=== PATIENT | female | born 1955 | race Hispanic/Latino ===

== ENCOUNTER 2019-10-06 11:31 | Emergency (ER) | payer OTHER, SELFPAY ==
[2019-10-06 11:33] VITALS: BP 149/78; PULSE 89; RESP 18; TEMP 36.6; O2SAT 96; BMI 39.9
--- NOTE | 2019-10-06 11:50 | ED.DCSUM_ITS ---
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 causing the blade to move she has fine lacerations to the tip of the right index finger she is left-hand dominant she has no other complaints no loss of function she indicates is very minimal pain Past Medical History - Allergies and Home Meds Allergies/Adverse Reactions: Allergies meperidine [From Demerol] Allergy (Verified 10/06/19 11:37) Other morphine Allergy (Verified 10/06/19 11:37) Vomiting Primary Care Physician: [facility]GROUP OF PHYSICIANS] - [facility] Doctor,Out of [NON-STAFF] - Past Medical History: - - Declined Review of Systems General: Denies: Chills, Fever, Sweats Eyes: Denies: Visual changes - bilaterally, Diplopia ENT: Denies: Rhinorrhea, Sore throat Cardiovascular: Denies: Chest pain, Palpitations Respiratory: Denies: Dyspnea, Cough, Dyspnea on exertion Gastrointestinal: Denies: Abdominal pain, Nausea, Vomiting, Diarrhea, Melena, Hematochezia Genitourinary: Denies: Dysuria, Hematuria, Frequency Musculoskeletal: Reports: - - Right index fingertip only. Denies: Back pain, Extremity Pain Skin: Denies: Rash, Wounds Neurological: Denies: Headache, Weakness, Numbness Physical Exam Vital Signs/Narrative: Vital Signs Temp Pulse Resp BP Pulse Ox 10/06/19 11:33 98 F 89 18 149/78 H 96 General: Well nourished, Well developed, No Acute Distress Head: Normocephalic, Atraumatic Eyes: Perrl, EOMI ENT: Moist mucous membranes, No rhinorrhea Neck: Supple, Nontender Cardiovascular: Regular rate, Regular rhythm, No murmurs Respiratory: No distress, CTA bilaterally, Chest nontender Abdomen: Soft, Nontender, Nondistended, Normal bowel sounds Back: Nontender, Normal Inspection Extremities: Nontender, No edema, - - She has some very fine abrasions superficial lacerations in an irregular fashion over the tip of the index finger the nail is intact the DIP PIP MCP joint move normally she has no loss of function and no pain with movement the rest of the hand wrist exam unremarkable Skin: Normal color, No rash Neurological: Alert, Oriented x3, Cranial nerves II-XII grossly intact, Normal Strength, Normal Sensation Psychological: Normal affect, Normal Mood Diagnostic/Tx/Re-eval - Medical Decision Making X-rays obtained to look for fracture is unremarkable, she underwent wound care cleansing we discussed options to close these lacerations given the nature of the lacerations and how well approximated they were with no gaping of the skin we used some tissue adhesive dressing finger splint and she will follow-up with her outpatient providers in the next few days She is also referred to [facility] Worker's Comp. paperwork filled out Home stable Final impression Multiple fine lacerations abrasions to tip of right finger 2 cm total ED Disposition - Plan for ED Patient: Diagnosis: Left index finger laceration 2cm Instructions: LACERATION, All, LACERATION, Hand Referrals: [facility] Doctor,Out of [NON-STAFF] - [facility] [GROUP OF PHYSICIANS] -
--- NOTE | 2019-10-06 11:59 | RAD_ITS ---
STUDY: X-RAY - RIGHT HAND REASON FOR EXAM: Female, 64 years old. Trauma second digit TECHNIQUE: 3 view(s) of the hand. COMPARISON: None. FINDINGS: No acute fracture, dislocation or osseous destruction. No significant joint space narrowing. No significant productive changes. Minimal soft tissue swelling/defect distal second digit. IMPRESSION: Minimal soft tissue swelling/defect distal second digit, no underlying osseous abnormality. Electronically Signed: Clemente Odonnell, at 12:45 EST Tel , Service support , RAD/Hand Min 3 Views
[2019-10-06] MEDS: Diphth,Pertuss(Acell),Tet Vac 0.5 ML Vial IM (12:18)
[2019-10-06 13:24] VITALS: BP 138/74; PULSE 87; RESP 16; O2SAT 99
== END 2019-10-06 13:27 | disposition home or self-care (01) ==
LOC: ED 11:59
PROVIDERS: Emergency Provider Emergency Medicine; Family Provider Student in an Organized Health Care Education/Training Program; PCP Student in an Organized Health Care Education/Training Program
DX: S61.210A Laceration without foreign body of right index finger without damage to nail, initial encounter (principal); W29.0XXA Contact with powered kitchen appliance, initial encounter; Y93.9 Activity, unspecified; Y92.89 Other specified places as the place of occurrence of the external cause; Y99.0 Civilian activity done for income or pay; Z88.5 Allergy status to narcotic agent
CPT/HCPCS: 73130; 90471; 90715; 99282